=== PATIENT | male | born 1955 | race Caucasian/White ===

== ENCOUNTER 2017-01-14 10:17 | Outpatient (CLI) | payer OTHER ==
--- NOTE | 2017-01-14 15:15 | Diagnostic Imaging Report ---
[facility] [id number] [facility], [facility] [address] [place], [place]. [address] Report Submission Date: Jan 14, 2017 3:07:18 PM MORTGAGE BRANCH MANAGER Patient Study Name: CRISTINA KAPADIA Date: Jan 14, 2017 10:30:02 AM MORTGAGE BRANCH MANAGER Modality Type: US Gender: M Description: UNILAT LTD STDY EXT VEINS : 53 Institution: [facility] Physician KYLE PEÑA Ultrasound venous Doppler of right lower extremity HISTORY: Right lower extremity pain and swelling for 2 weeks FINDINGS: Visualized portions of the right common femoral, femoral, greater saphenous, profunda femoris, popliteal, upper calf, and posterior tibial veins exhibit normal respiratory phasicity, compressibility, and augmentation without grayscale or color Doppler evidence of deep venous thrombosis. A moderate- sized popliteal cyst is present. There is also a complex fluid collection or hematoma in the medial aspect of the proximal calf measuring 3.3 x 1.8 cm. IMPRESSION: No evidence right lower extremity deep venous thrombosis. Moderate popliteal cyst. A 2nd smaller medial proximal calf fluid collection is observed. Electronically signed on Jan 14, 2017 3:07:18 PM MORTGAGE BRANCH MANAGER by: Jatinder TLALEY
== END 2017-01-14 10:18 ==
LOC: RAD 10:17
PROVIDERS: ATTEND Physician Assistant
DX: I82.401 Acute embolism and thrombosis of unspecified deep veins of right lower extremity (principal)
CPT/HCPCS: 93971

== ENCOUNTER 2017-03-05 14:59 | Outpatient (CLI) | payer OTHER ==
[2017-03-05 15:25] LABS: BASOPHILS % 0.5 (0.0-1.5); EOSINOPHILS % 1.3 % (0.0-6.8); MEAN CORPUSCULAR HEMOGLOBIN 30.6 pg (28.0-34.0); MEAN CORPUSCULAR VOLUME 91.4 fl (80.0-100.0); MONOCYTES % 9.7 % (0.0-11.0); NEUTROPHILS # 8.4 # k/uL (1.4-7.7)
--- NOTE | 2017-03-05 15:32 | Diagnostic Imaging Report ---
GUERA PINEDA [facility] [address] [facility] [address] [address] Report Submission Date: Mar 05, 2017 3:30:39 PM FLOOR NURSE Patient Study Name: CRISTINA KAPADIA Date: Mar 05, 2017 3:18:04 PM FLOOR NURSE Modality Type: CR Gender: M Description: CHEST : 53 Institution: [facility] Physician: GUERA PINEDA Examination: PA and lateral chest. History: Evaluate lung kohler. Comparison exam: None provided Findings: PA lateral chest demonstrate a normal cardiac and mediastinal silhouette. Mild right inferior hemithorax haziness. No blunting of the costophrenic margins. Osseous structures are appropriate for age. Impression: Mild right lower lung hazy infiltrate. No effusion. Electronically signed on Mar 05, 2017 3:30:39 PM FLOOR NURSE by: Aram TALLEY
[2017-03-05 15:39] LABS: eGFR (African) > 60; eGFR (Non-African) > 60
== END 2017-03-05 15:00 ==
LOC: LAB 14:59
PROVIDERS: ATTEND Family Medicine
DX: I48.91 Unspecified atrial fibrillation (principal); R06.09 Other forms of dyspnea
CPT/HCPCS: 36415; 71020; 80053; 83880; 84443; 84484; 85025

== ENCOUNTER 2017-04-01 09:14 | Outpatient (CLI) | payer OTHER ==
[2017-04-01 09:55] LABS: eGFR (African) > 60; eGFR (Non-African) > 60
== END 2017-04-01 09:15 ==
LOC: LAB 09:14
PROVIDERS: ATTEND Family Medicine
DX: R60.0 Localized edema (principal)
CPT/HCPCS: 36415; 80048

== ENCOUNTER 2018-02-20 15:10 | Outpatient (CLI) | payer OTHER ==
[2018-02-20 15:32] LABS: BASOPHILS % 0.5 (0.0-1.5); EOSINOPHILS % 2.7 % (0.0-6.8); MEAN CORPUSCULAR HEMOGLOBIN 28.9 pg (28.0-34.0); MONOCYTES % 8.1 % (0.0-11.0); NEUTROPHILS # 5.9 # k/uL (1.4-7.7)
[2018-02-20 16:16] LABS: eGFR (Non-African) > 60
== END 2018-02-20 15:11 ==
LOC: LAB 15:10 → EDSTATUS 15:52
PROVIDERS: ATTEND Family Medicine
DX: I10 Essential (primary) hypertension (principal); I35.1 Nonrheumatic aortic (valve) insufficiency; I48.2 Chronic atrial fibrillation; I71.2 Thoracic aortic aneurysm, without rupture
CPT/HCPCS: 36415; 80053; 80061; 84443; 85025